=== PATIENT | female | born 1985 | race Caucasian/White ===

== ENCOUNTER 2019-12-04 12:00 | Inpatient (IN) ==
[2019-12-04] MEDS ORDERED: Ondansetron 4 MG/2 ML VIAL IVP PRN (12:14)
[2019-12-04] MEDS ORDERED: Famotidine 20 MG/2 ML VIAL IVP PRN (12:14)
[2019-12-04] MEDS ORDERED: *HR* FentaNYL (PF) 100 MCG/2 ML VIAL IVP PRN (12:14)
[2019-12-04] MEDS ORDERED: Metoclopramide 10 MG/2 ML VIAL IVP PRN (12:14)
[2019-12-04] MEDS ORDERED: Naloxone 0.4 MG/ML INJ IVP PRN (12:14)
[2019-12-04] MEDS ORDERED: Oxytocin 20 units/ LR 1000 mL 20 UNIT/1,000 ML BAG IVC SCH ×2 (12:30→19:59)
[2019-12-04 13:43] LABS: Basophils % 0.4 %; Eosinophils # 0.1 K/mcL (0.0-0.6); Eosinophils % 0.5 %; Hematocrit 37.3 % (35.3-44.9); Immature Granulocytes % 0.7 % (0-4); Lymphocytes # 1.5 K/mcL (0.6-4.6); Lymphocytes % 13.6 %; Mean Corpuscular HGB Conc 32.2 g/dL (31.6-35.5); Mean Corpuscular Hemoglobin 29.6 pg (28.0-33.3); Mean Corpuscular Volume 91.9 fL (83.0-100.0); Mean Platelet Volume 10.9 fL (9.4-12.4); Monocytes # 0.8 K/mcL (0.0-1.3); Monocytes % 7.5 %; Neutrophils # 8.5 K/mcL (1.6-8.9); Platelet Count 244 K/mcL (140-400); Red Blood Count 4.06 M/mcL (3.82-4.97); Red Cell Distribution Width 13.2 % (11.5-14.5); Segmented Neutrophils % 77.3 %
[2019-12-04] MEDS ORDERED: Oxytocin 20 units/ LR 1000 mL 20 UNIT/1,000 ML BAG IVC ONE ×3 (13:45→19:59)
[2019-12-04] MEDS ORDERED: Ringers Solution, Lactated 1,000 ML ONE ×2 (13:45→14:41)
[2019-12-04] MEDS: Ringers Solution, Lactated 1,000 ML IVC SCH ×2 (13:52→14:51)
[2019-12-04] MEDS ORDERED: *HR* FentaNYL (PF) 100 MCG/2 ML VIAL ONE (14:04)
[2019-12-04] MEDS ORDERED: Ropivacaine/PF 0.2% 20 ML VIAL ONE (14:05)
[2019-12-04] MEDS ORDERED: Epidural Premix (fent/bupiv) 110 ML EP ONE (14:14)
[2019-12-04 14:57] LABS: Amphetamine Screen,Urine Negative ng/mL (Cutoff=1000); Barbiturate Screen,Urine Negative ng/mL (Cutoff=200); Benzodiazepines Screen,Urine Negative ng/mL (Cutoff=200); Cannabinoid Screen,Urine Negative ng/mL (Cutoff = 50); Cocaine Screen,Urine Negative ng/mL (Cutoff= 300); Opiate Screen,Urine Negative ng/mL (Cutoff=300); Phencyclidine Screen,Urine Negative ng/mL (Cutoff=25)
[2019-12-04] MEDS ORDERED: Ropivacaine/PF 0.2% 20 ML VIAL EP ONE (15:08)
[2019-12-04] MEDS ORDERED: EPHEDrine 50 MG/ML VIAL IVP PRN (15:08)
[2019-12-04] MEDS ORDERED: *HR* FentaNYL (PF) 100 MCG/2 ML VIAL EP ONE (15:08)
[2019-12-04] MEDS ORDERED: Epidural Premix (fent/bupiv) 110 ML EP SCH (15:15)
[2019-12-04] MEDS ORDERED: *HR* HYDROcodone/Acet 5/325 mg TABLET PO PRN (19:59)
[2019-12-04] MEDS ORDERED: Sennosides 8.6 MG TABLET PO PRN (19:59)
[2019-12-04] MEDS ORDERED: Benzocaine/Menthol 56 GM AEROSOL SPRAY TP PRN (19:59)
[2019-12-04] MEDS ORDERED: Lanolin 7 G OINT...G. TP PRN (19:59)
[2019-12-04] MEDS ORDERED: Measles/Mumps/Rubella Vacc 0.5 ML VIAL SQ PRN (19:59)
[2019-12-04] MEDS ORDERED: Acetaminophen 325 MG TABLET PO PRN (19:59)
[2019-12-04] MEDS: Ibuprofen 600 MG TABLET PO PRN (21:52)
[2019-12-05 06:37] LABS: Basophils % 0.2 %; Eosinophils # 0.2 K/mcL (0.0-0.6); Eosinophils % 1.3 %; Hematocrit 34.5 % (35.3-44.9); Hemoglobin 11.2 g/dL (11.5-15.4); Immature Granulocytes % 0.8 % (0-4); Lymphocytes % 15.7 %; Mean Corpuscular HGB Conc 32.5 g/dL (31.6-35.5); Mean Corpuscular Hemoglobin 30.6 pg (28.0-33.3); Mean Corpuscular Volume 94.3 fL (83.0-100.0); Mean Platelet Volume 10.7 fL (9.4-12.4); Monocytes # 0.9 K/mcL (0.0-1.3); Monocytes % 7.1 %; Neutrophils # 9.4 K/mcL (1.6-8.9); Platelet Count 210 K/mcL (140-400); Red Blood Count 3.66 M/mcL (3.82-4.97); Red Cell Distribution Width 13.2 % (11.5-14.5); Segmented Neutrophils % 74.9 %; White Blood Count 12.5 K/mcL (4.3-11.1)
[2019-12-05] MEDS: Ibuprofen 600 MG TABLET PO PRN ×2 (06:52→14:51)
[2019-12-05] MEDS ORDERED: Prenatal Vit/FA 1 EACH TABLET PO SCH (09:00)
[2019-12-05] MEDS ORDERED: NON-FORMULARY MEDICATION 1 EACH EACH (Prenatal 19 Tablet 1 TAB) PO SCH (09:00)
[2019-12-05 16:57] VITALS: BP 128/74
== END 2019-12-05 17:09 | disposition home or self-care (01) | DRG 807 ==
LOC: 1NENULAB 12:12 → 1NENUOBS 19:57
PROVIDERS: ADMIT Advanced Practice Midwife; ATTEND Advanced Practice Midwife